=== PATIENT | male | born 1995 | race Caucasian/White ===

== ENCOUNTER 2019-06-12 22:58 | Observation (INO) ==
[2019-06-13] MEDS ORDERED: ONDANSETRON 4 MG/2 ML VIAL IV PRN (01:43)
[2019-06-13] MEDS ORDERED: ACETAMINOPHEN 325 MG TABLET PO PRN (01:43)
[2019-06-13] MEDS ORDERED: HYDROmorphone 2 MG/1 ML VIAL IV PRN (01:43)
[2019-06-13] MEDS: SODIUM CHLORIDE 0.9% 1,000 ML IV SCH ×2 (02:25→15:48)
[2019-06-13 04:10] LABS: Basophils # 0.1 10*3/uL (0.0-0.2); Basophils % 0.8 % (0.0-0.8); Eosinophils # 0.3 10*3/uL (0.0-0.87); Eosinophils % 4.6 % (0.00-10.9); Hematocrit 40.3 VOL% (42.0-52.0); Hemoglobin 13.7 GM/DL (14.0-18.0); Immature Granulocytes % 0.2 %; Immature Granulocytes Absolute 0.01 #; Lymphocytes # 2.2 10*3/uL (1.4-4.0); Lymphocytes % 35.2 % (21.2-54.2); Mean Corpuscular Volume 88.2 FL (87-102); Mean Platelet Volume 10.7 FL (9.6-12.0); Monocytes % 9.8 % (1.7-12.7); Neutrophils % 49.4 % (38.7-73.9); Platelet Count 234 T/CUMM (130-400); Red Blood Count 4.57 MC/CUMM (3.8-5.5); Red Cell Distribution Width 12.7 % (9.3-17.3); White Blood Count 6.1 T/CUMM (4-12)
[2019-06-13 04:28] LABS: Albumin 3.6 G/DL (3.4-5.0); Bilirubin,Total 0.7 MG/DL (0.2-1.0); Calcium 8.5 MG/DL (8.5-10.1); Osmolality,Calculated 281.3 MOS/KG (273-304); Total Protein 6.7 G/DL (6.4-8.3)
[2019-06-13] MEDS ORDERED: LACTATED RINGERS 1,000 ML IV SCH (07:00)
[2019-06-13] MEDS ORDERED: propofoL 200 MG/20 ML VIAL IV ONE (07:58)
[2019-06-13] MEDS ORDERED: SEVOFLURANE 1 UNIT/15 MINUTE INH ONE (07:58)
[2019-06-13] MEDS ORDERED: LIDOCAINE 2% 5 ML VIAL ONE (07:58)
[2019-06-13] MEDS ORDERED: MIDAZOLAM 2 MG/2 ML VIAL ONE (07:58)
[2019-06-13] MEDS ORDERED: fentaNYL 100 MCG/2 ML VIAL ONE (07:58)
[2019-06-13] MEDS ORDERED: PHENYLEPHRINE 1 MG/10 ML SYRINGE IV ONE (07:59)
[2019-06-13] MEDS ORDERED: ONDANSETRON 4 MG/2 ML VIAL ONE (07:59)
[2019-06-13] MEDS ORDERED: DEXAMETHASONE 4 MG/1 ML VIAL ONE (07:59)
[2019-06-13 08:36] VITALS: BP 121/80
[2019-06-13] MEDS ORDERED: PANTOPRAZOLE 40 MG VIAL IV SCH (09:00)
== END 2019-06-13 13:00 | disposition left against medical advice (07) ==
LOC: N.ED 22:58 → N.EDINP 22:58 → N.2W 06-13 00:52
PROVIDERS: ADMIT Student in an Organized Health Care Education/Training Program; ATTEND Student in an Organized Health Care Education/Training Program